=== PATIENT | male | born 1985 | race Caucasian/White ===

== ENCOUNTER 2023-09-13 15:00 | Emergency (ER) | payer BC, SELFPAY ==
[2023-09-13 15:12] VITALS: BP 131/98
--- NOTE | 2023-09-13 16:19 | ED.GENMED ---
History of Present Illness
General
Chief Complaint: Male Genito-Urinary Symptoms
Source: patient
Exam Limitations: none
Time Seen by Provider: 09/13/23 15:44
Nursing documentation reviewed up to this point in time: agreed with
History of Present Illness
History of Present Illness:
The patient is a very pleasant 37-year-old man who comes in with complaints of intermittent left testicular pain. Patient reports that the pain started about 4 days ago. He denies any specific trauma but states that for his job, he is to quickly
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 The patient reports that last night the left testicle was more painful and swollen but today the symptoms have all improved greatly. Patient denies any burning when he urinates. He denies penile discharge. He
reports he is in a monogamous relationship and feels his risk of STD is extremely low. The patient reports that he also felt a bulge in his left groin area which is now gone.
Past History
Past History
ED Past Medical History: None
ED Past Surgical History: Other (Dental)
Social History
Tobacco: Other
Alcohol: Other
Drug: None
Personal: Single
Living: other
Employment: Employed
Family History
Family History: Other
Review of Systems
Review of Systems
Allergies reviewed?: Yes
All Other Systems: ROS reviewed and negative except as documented in HPI and ROS
Constitutional: Reports no symptoms
EENT: Reports no symptoms
Respiratory: Reports no symptoms
Cardiac: Reports no symptoms
ABD/GI: Reports no symptoms
: Reports other
Musculoskeletal: Reports no symptoms
Skin: Reports no symptoms
Neurological: Reports no symptoms
Endocrine: Reports no symptoms
Hematologic/Lymphatic: Reports no symptoms
Psychiatric: Reports no symptoms
Phy Exam
Physical Exam
Physical Exam:
Physical Exam
General: no apparent distress, not acutely ill. Extremely well and comfortable appearing
Neck: supple. no meningeal signs. normal psoterior pharynx
Heart: s1/s2 regular rate and rhythm, no murmur. equal radial pulses.
Lungs: no acute respiratory distress. clear bilaterally
Abdomen: normal bowel sounds. not tender. no CVAT. Abdomen is soft throughout. I have patient stand up and cough and bear down and I cannot feel a hernia. Left testicle is nonerythematous, not apparently swollen and
nontender to the touch. Right testicle appears normal.
Neuro: alert and oriented. no focal neurological deficits
Skin: no rash
Psychiatric: well kept. interactive and cooperative
Extremities: no edema. no calf tenderness. negative homans. good distal pulses
Course
Orders/Labs/Results
Orders:
Orders
09/13/23 15:15
US Scrotum Urgent
Comment:
Reason For Exam: testicular pain
09/13/23 17:41
Urinalysis Reflex To Culture Urgent
Date Specimen was Collected: 09/13/23
Time Specimen was Collected: 17:40
Vital Signs
Initial and Last Documented VS:
Initial Vital Signs
Temp Pulse Resp BP Pulse Ox
98.3 F 79 18 131/98 98
09/13/23 15:12 09/13/23 15:12 09/13/23 15:12 09/13/23 15:12 09/13/23 15:12
Last Documented Vital Signs
Temp Pulse Resp BP Pulse Ox
98.3 F 79 18 131/98 98
09/13/23 15:12 09/13/23 15:12 09/13/23 15:12 09/13/23 15:12 09/13/23 15:12
MDM/Problems Addressed
Differential Diagnosis Includes:
Epididymitis, orchitis, testicular torsion, inguinal hernia, UTI
MDM/Problems Addressed:
Patient presents with acute left testicular pain which is nearly gone at this time
*Radiology
Radiology exam reviewed: radiology read reviewed
*Pulse Oximetry
Patient hypoxic: no
*EKG
Interpreted by ED Provider?: NA
*Skiff Operator Interpretation
Rate: Skiff Operator- N/A
*Critical Care Note
Total Time (30-74mins, 75-104mins- exclusive of procedures): Not Applicable
Update Note
Update Note:
Patient continues to look well for hours in the emergency department. He has minimal to no pain in his left testicle. I cannot feel an inguinal hernia. Patient referred to follow-up with urology if pain reoccurs and to come back immediately if he
has any severe pain in the left testicle.
ED Attending Note
-
Portions of this chart may have been created with voice recognition software.� Occasional wrong word or��sound alike� substitutions may have occurred due to the inherent limitations of voice recognition software.
Discharge Plan
Departure
Patient Disposition: Home (Routine Discharge)
Date of Disposition: 09/13/23
Time of Disposition: 18:25
Patient with high blood pressure during this ER visit?: Yes
Condition: Good
Covid-19: Not Applicable
Discharge Problem:
Left testicular pain
Instructions: BLOOD PRESSURE
Referrals:
Dorcas Shay DO [Family Provider] -
Ezequiel Art MD [Active] - (Call if needed for any testicle pain )
Activity Restrictions/Additional Instructions:
Return for any severe testicle pain or vomiting
Interventions
Interventions:
*Risk Screen - Suicide Last Done: 09/13/23 15:12
*General Assessment Last Done: 09/13/23 15:12
*Neglect/Abuse Screening Last Done: 09/13/23 15:12
*Nursing Disposition Last Done: 09/13/23 18:54
ED-Male Genitourinary Assessment Last Done: 09/13/23 15:57
Discharge Date and Time
Discharge Date/Time: 09/13/23 18:54
Print Language: PARAGUAYAN
[2023-09-13 18:08] LABS: Urine Albumin Negative (Neg - Trace); Urine Bilirubin Negative (Negative); Urine Character Clear (Clear); Urine Color Yellow; Urine Glucose Negative (Negative); Urine Ketone Negative (Negative); Urine Leukocyte Negative (Negative); Urine Nitrite Negative (Negative); Urine Occult Blood Negative (Negative); Urine Urobilinogen Negative (Neg - 1+); Urine pH 6.5 (5.0-9.0)
== END 2023-09-13 18:54 | disposition home or self-care (01) ==
LOC: EMR 15:00
PROVIDERS: EMERGENCY PHYSICIAN Emergency Medicine; FAMILY PHYSICIAN Family Medicine
DX: N50.812 Left testicular pain (principal)
CPT/HCPCS: 99284; 76870; 81003; 93976